=== PATIENT | male | born 1950 | race Caucasian/White ===

== ENCOUNTER 2019-05-23 13:20 | Observation (INO) ==
[2019-05-23] MEDS ORDERED: 0.9 % Sodium Chloride 1,000 ML IVC SCH (16:45)
[2019-05-23] MEDS ORDERED: Ipratropium/Albuterol Neb 3 ML IH PRN (16:53)
[2019-05-23 17:44] LABS: Bilirubin,Urine Negative (Negative); Blood,Urine Negative (Negative); Clarity,Urine Clear (Clear); Color,Urine Yellow (Yellow); Glucose,Urine (UA) Normal (Normal); Ketones,Urine Negative (Negative); Leukocyte Esterase,Urine Negative (Negative); Nitrite,Urine Negative (Negative); Protein,Urine Negative (Neg-Trace); Specific Gravity,Urine 1.023 (1.010-1.025); Urobilinogen,Urine Normal (Normal)
[2019-05-23 18:18] LABS: Hematocrit 35.6 % (37.5-50.1); Hemoglobin 11.2 g/dL (12.9-16.9)
[2019-05-23] MEDS: Pantoprazole 40 MG VIAL IVP SCH (18:37)
[2019-05-23] MEDS: Budesonide Neb 0.5 MG/2 ML IH SCH (20:08)
[2019-05-23 23:15] LABS: Hemoglobin 9.9 g/dL (12.9-16.9)
[2019-05-24 01:29] LABS: Hematocrit 31.8 % (37.5-50.1); Mean Corpuscular HGB Conc 31.4 g/dL (31.6-35.5); Mean Corpuscular Hemoglobin 31.3 pg (28.0-33.3); Mean Corpuscular Volume 99.4 fL (83.0-100.0); Mean Platelet Volume 10.8 fL (9.4-12.4); Platelet Count 260 K/mcL (140-400); Red Cell Distribution Width 15.2 % (11.5-14.5); White Blood Count 18.2 K/mcL (4.3-11.1)
[2019-05-24 01:31] LABS: BUN/Creatinine Ratio 70 (6-26); Blood Urea Nitrogen 50 mg/dL (8-23); Calcium 7.9 mg/dL (8.6-10.3); Carbon Dioxide 26 mEq/L (23-29); Chloride 114 mEq/L (98-107); Glucose 91 mg/dL (70-105); Osmolality,Calculated 309 (280-300); Sodium 143 mEq/L (136-145); eGFR For African Americans > 60 (> 60); eGFR For Non-African Americans > 60 (> 60)
[2019-05-24] MEDS: Pantoprazole 40 MG VIAL IVP SCH ×2 (05:29→18:12)
[2019-05-24] MEDS: Budesonide Neb 0.5 MG/2 ML IH SCH ×2 (07:33→19:52)
[2019-05-24] MEDS ORDERED: Ondansetron 4 MG/2 ML VIAL IVP PRN (09:29)
[2019-05-24] MEDS: Acetaminophen 325 MG TABLET PO PRN ×2 (12:10→20:54)
[2019-05-24] MEDS ORDERED: *HR* Propofol 200 MG/20 ML VIAL IVP ONE ×2 (12:10→12:26)
[2019-05-24] MEDS ORDERED: 0.9 % Sodium Chloride 500 ML IVC SCH (12:45)
[2019-05-24] MEDS ORDERED: 0.9 % Sodium Chloride 1,000 ML IVC SCH (13:30)
[2019-05-25] MEDS: Pantoprazole 40 MG VIAL IVP SCH (05:22)
[2019-05-25] MEDS: Acetaminophen 325 MG TABLET PO PRN (05:22)
[2019-05-25 10:32] LABS: Hematocrit 27.7 % (37.5-50.1); Mean Corpuscular HGB Conc 32.5 g/dL (31.6-35.5); Mean Corpuscular Hemoglobin 31.6 pg (28.0-33.3); Mean Corpuscular Volume 97.2 fL (83.0-100.0); Platelet Count 215 K/mcL (140-400); Red Blood Count 2.85 M/mcL (4.19-5.50); Red Cell Distribution Width 14.6 % (11.5-14.5); White Blood Count 17.1 K/mcL (4.3-11.1)
[2019-05-25 10:53] LABS: BUN/Creatinine Ratio 24 (6-26); Blood Urea Nitrogen 22 mg/dL (8-23); Calcium 8.4 mg/dL (8.6-10.3); Carbon Dioxide 33 mEq/L (23-29); Chloride 106 mEq/L (98-107); Glucose 102 mg/dL (70-105); Osmolality,Calculated 292 (280-300); Potassium 3.8 mEq/L (3.5-5.1); Sodium 139 mEq/L (136-145); eGFR For African Americans > 60 (> 60); eGFR For Non-African Americans > 60 (> 60)
[2019-05-25] MEDS: Budesonide Neb 0.5 MG/2 ML IH SCH (11:20)
[2019-05-25 11:56] VITALS: BP 110/56
== END 2019-05-25 13:00 | disposition home or self-care (01) ==
LOC: 2NNU 14:19 → INTOOBSV 14:19 → SUATTDRO 14:19 → 3ANU 05-24 18:55
PROVIDERS: ADMIT Family Medicine; ATTEND Family Medicine
PROC: ENDOEBX (2019-05-24 09:25)